=== PATIENT | female | born 1975 | race African-American/Black ===

== ENCOUNTER 2016-07-13 13:38 | Inpatient (IN) | payer OTHER ==
[~2016-07-13] VITALS: Ht 167.6 cm
[2016-07-13 14:49] LABS: DEFINITIVE VIEW TRANSMISSION; Hematocrit 36.5 % (36.0-46.0); Lymphocytes # (auto) 1.9 uL; Lymphocytes % (auto) 20.3 % (10.0-50.0); Mean Corpuscular Hemoglobin 28.3 pg (28.0-32.0)
[2016-07-13 14:52] LABS: Basophils # (auto) 0.2 uL; Basophils % (auto) 2.6 % (0.0-2.0); Eosinophils # (auto) 0.2 uL; Eosinophils % (auto) 2.6 % (0.0-7.0); Mean Corpuscular Hgb Conc. 32.8 g/dL (32.0-36.0); Mean Corpuscular Volume 86.2 fL (80.0-100.0); Mean Platelet Volume 9.3 fL (7.4-10.4); Monocytes # (auto) 0.7 uL; Neutrophils # (auto) 6.2 uL; Neutrophils % (auto) 66.5 % (37.0-80.0); Platelet Count (auto) 361 10^3/uL (140-450); White Blood Cell 9.3 10^3/uL (4.4-10.8)
[2016-07-13 14:54] LABS: Red Cell Distribution Width 20.8 % (11.6-16.0)
[2016-07-13 15:04] LABS: Albumin 3.1 g/dL (3.4-5.0); Anion Gap 8 (5-15); Calcium 7.8 mg/dL (8.5-10.1); Carbon Dioxide 25 mmol/L (21-32); Chloride 110 mmol/L (98-107); Glucose 86 mg/dL (74-106); Magnesium 2.6 mg/dL (1.6-2.6); Sodium 143 mmol/L (136-145)
[2016-07-13 15:10] LABS: Urine Bilirubin Negative (Negative); Urine Blood Negative /uL (Negative); Urine Color Yellow (Yellow); Urine Glucose Normal (Normal); Urine Ketone Negative (Negative); Urine Mucus FEW (None Seen); Urine Nitrite Negative (Negative); Urine RBC 1 /hpf (0 - 4); Urine Squamous Epithelial Cell FEW /hpf (<5)
[2016-07-13 15:12] LABS: Alkaline Phosphatase 89 U/L (45-117); Aspartate Aminotransferase 9 U/L (15-37); BUN/Creatinine Ratio 13.6; Bilirubin, Total 0.2 mg/dL (0.2-1.0); Blood Urea Nitrogen 12 mg/dL (7-18); GFR African American 92 mL/min; GFR Non-African American 76 mL/min; Total Protein 7.2 g/dL (6.4-8.2)
[2016-07-13 15:13] LABS: Anisocytosis Slight; Platelet Estimate Adequate
[2016-07-13 15:28] LABS: INR 0.92 (0.9-1.15); Partial Thromboplastin Time 22.1 sec (22.64-33.71); Prothrombin Time 9.5 sec (9.37-12.3)
[2016-07-13] MEDS ORDERED: ASPirin 81 mg TAB PO ONE (18:30)
[2016-07-13] MEDS ORDERED: KETOROLAC TROMETH 30 MG/ML 1ML VIAL IV ONE (19:00)
[2016-07-13] MEDS ORDERED: ACETAMINOPHEN 325 MG TAB PO ONE (21:00)
[2016-07-13] MEDS: SODIUM CHLORIDE 0.9% 1,000 ML IV SCH (21:25)
[2016-07-13] MEDS: CIPROFLOXACIN HCL 500 MG TAB PO SCH (22:17)
[2016-07-13] MEDS: ENOXAPARIN SOD 100 MG/1 ML SYRINGE SC SCH (22:17)
[2016-07-13 22:47] VITALS: BP 122/76
[2016-07-13] MEDS: LORazepam 0.5 MG TAB PO PRN (23:24)
[2016-07-13 23:55] VITALS: BP 122/76
[2016-07-14] MEDS: MORPHINE SULF INJ 2 MG/ML SYRINGE 1ML IV PRN ×2 (00:18→10:38)
[2016-07-14 05:00] VITALS: BP 112/69
[2016-07-14 07:06] LABS: Basophils # (auto) 0.2 uL; Basophils % (auto) 2.6 % (0.0-2.0); DEFINITIVE VIEW TRANSMISSION; Eosinophils # (auto) 0.2 uL; Eosinophils % (auto) 3.2 % (0.0-7.0); Hemoglobin 11.1 g/dL (12.2-16.2); Lymphocytes # (auto) 2.2 uL; Lymphocytes % (auto) 35.2 % (10.0-50.0); Mean Corpuscular Hgb Conc. 32.7 g/dL (32.0-36.0); Mean Corpuscular Volume 85.9 fL (80.0-100.0); Mean Platelet Volume 8.9 fL (7.4-10.4); Monocytes # (auto) 0.5 uL; Monocytes % (auto) 8.3 % (0.0-12.0); Neutrophils # (auto) 3.1 uL; Neutrophils % (auto) 50.7 % (37.0-80.0); Platelet Count (auto) 302 10^3/uL (140-450); White Blood Cell 6.1 10^3/uL (4.4-10.8)
[2016-07-14 07:08] LABS: Red Cell Distribution Width 20.6 % (11.6-16.0)
[2016-07-14 07:26] LABS: Anisocytosis Slight; Platelet Estimate Adequate
[2016-07-14 07:28] LABS: Albumin 2.8 g/dL (3.4-5.0); Alkaline Phosphatase 70 U/L (45-117); Anion Gap 8 (5-15); Aspartate Aminotransferase 8 U/L (15-37); BUN/Creatinine Ratio 19.7; Bilirubin, Total 0.3 mg/dL (0.2-1.0); Blood Urea Nitrogen 13 mg/dL (7-18); Calcium 7.8 mg/dL (8.5-10.1); Carbon Dioxide 25 mmol/L (21-32); Chloride 111 mmol/L (98-107); Cholesterol 136 mg/dL (<200); GFR African American 128 mL/min; GFR Non-African American 105 mL/min; Glucose 84 mg/dL (74-106); HDL Cholesterol 47 mg/dL (40-59); LDL Cholesterol 80 mg/dL (<100); Potassium 3.5 mmol/L (3.5-5.1); Sodium 144 mmol/L (136-145); Total Protein 6.4 g/dL (6.4-8.2); Triglycerides 76 mg/dL (<150)
[2016-07-14 08:27] VITALS: BP 118/67
[2016-07-14] MEDS ORDERED: METOPROLOL TARTRATE 25 MG TAB PO ONE (08:45)
[2016-07-14] MEDS: SODIUM CHLORIDE 0.9% 1,000 ML IV SCH ×2 (09:29→21:59)
[2016-07-14] MEDS ORDERED: ASPirin 81 mg TAB PO SCH (10:00)
[2016-07-14] MEDS: NITROGLYCERIN 0.4 MG SL TAB SL PRN ×3 (10:16→10:29)
[2016-07-14] MEDS: CIPROFLOXACIN HCL 500 MG TAB PO SCH (10:36)
[2016-07-14] MEDS: ENOXAPARIN SOD 100 MG/1 ML SYRINGE SC SCH ×2 (10:38→21:41)
[2016-07-14 12:01] VITALS: BP 107/61
[2016-07-14] MEDS ORDERED: ASPirin 325 MG TAB PO PRN (13:00)
[2016-07-14] MEDS ORDERED: ASPirin 325 MG TAB PO ONE (13:00)
[2016-07-14] MEDS ORDERED: cefTRIAXone 1GM/50ML D5W 50 ML IV ONE (13:15)
[2016-07-14 16:02] VITALS: BP 105/72
[2016-07-14] MEDS: LORazepam 0.5 MG TAB PO PRN (16:04)
[2016-07-14] MEDS: ALPRAZolam 0.5 MG TAB PO PRN (19:04)
[2016-07-14 19:50] VITALS: BP 117/63
[2016-07-14 22:02] VITALS: BP 117/63
[2016-07-15] MEDS: ALPRAZolam 0.5 MG TAB PO PRN ×3 (01:16→14:48)
[2016-07-15 05:07] VITALS: BP 118/74
[2016-07-15 06:10] LABS: Basophils # (auto) 0.1 uL; Basophils % (auto) 2.1 % (0.0-2.0); DEFINITIVE VIEW TRANSMISSION; Eosinophils # (auto) 0.3 uL; Eosinophils % (auto) 5.9 % (0.0-7.0); Hematocrit 35.4 % (36.0-46.0); Hemoglobin 11.4 g/dL (12.2-16.2); Lymphocytes # (auto) 2.1 uL; Lymphocytes % (auto) 37.5 % (10.0-50.0); Mean Corpuscular Hemoglobin 28.2 pg (28.0-32.0); Mean Corpuscular Hgb Conc. 32.3 g/dL (32.0-36.0); Mean Corpuscular Volume 87.3 fL (80.0-100.0); Mean Platelet Volume 9.4 fL (7.4-10.4); Monocytes # (auto) 0.5 uL; Monocytes % (auto) 8.5 % (0.0-12.0); Neutrophils # (auto) 2.6 uL; Platelet Count (auto) 290 10^3/uL (140-450); White Blood Cell 5.6 10^3/uL (4.4-10.8)
[2016-07-15 06:16] LABS: BUN/Creatinine Ratio 14.9; Calcium 7.8 mg/dL (8.5-10.1); Magnesium 2.4 mg/dL (1.6-2.6); Potassium 3.8 mmol/L (3.5-5.1)
[2016-07-15 06:22] LABS: Red Cell Distribution Width 20.6 % (11.6-16.0)
[2016-07-15 06:24] LABS: Prothrombin Time 10.3 sec (9.37-12.3)
[2016-07-15 06:52] LABS: Anisocytosis Slight; Platelet Estimate Adequate
[2016-07-15 08:25] VITALS: BP 137/75
[2016-07-15] MEDS ORDERED: methylPREDNISolone SOD SUCC 125 MG/2 ML VL IV ONE (08:30)
[2016-07-15] MEDS ORDERED: METOPROLOL TARTRATE 25 MG TAB PO ONE (08:30)
[2016-07-15] MEDS ORDERED: diphenhdrAMINE HCL 50 MG/1 ML VL IV ONE (08:30)
[2016-07-15] MEDS ORDERED: FAMOTIDINE (10MG/ML) 2ML VL IV ONE (08:30)
[2016-07-15] MEDS ORDERED: cefTRIAXone 1GM/50ML D5W 50 ML IV SCH (09:00)
[2016-07-15] MEDS: SODIUM CHLORIDE 0.9% 1,000 ML IV SCH (10:29)
[2016-07-15] MEDS: ENOXAPARIN SOD 100 MG/1 ML SYRINGE SC SCH (11:45)
[2016-07-15] MEDS ORDERED: IOHEXOL 350 MG/ML 100ML IJ ONE (12:28)
[2016-07-15] MEDS ORDERED: NITROGLYCERIN 0.4 MG SL TAB SL ONE (12:39)
[2016-07-15] MEDS ORDERED: METOPROLOL TARTRATE 1MG/1ML-5ML VIAL IV ONE (12:39)
[2016-07-15 12:54] VITALS: BP 122/77
[2016-07-15 16:19] VITALS: BP 113/53
== END 2016-07-15 17:20 | disposition home or self-care (01) | DRG 313 ==
LOC: ER 13:38 → TELE 13:39 → TELE-EAST 22:30
PROVIDERS: ADMIT Family Medicine; ATTEND Internal Medicine Pulmonary Disease
DX: R07.89 Other chest pain (principal); N30.00 Acute cystitis without hematuria; F41.9 Anxiety disorder, unspecified; G43.909 Migraine, unspecified, not intractable, without status migrainosus; Z82.49 Family history of ischemic heart disease and other diseases of the circulatory system; Z83.3 Family history of diabetes mellitus; Z98.84 Bariatric surgery status; Z91.013 Allergy to seafood
CPT/HCPCS: 36415; 71010; 75574; 80048; 80053; 80061; 81001; 81025; 83735; 84443; 84484; 84702; 85025; 85379; 85610; 85730; 93005; 93306; 93970; 94761; 96374; J0696; J1885; J3490